=== PATIENT | female | born 1995 | race Caucasian/White ===

== ENCOUNTER 2016-09-29 06:36 | Inpatient (IN) ==
[2016-09-29] MEDS ORDERED: SODIUM CHLORIDE 0.9% 2,000 ML IV STA (06:56)
[2016-09-29] MEDS ORDERED: ONDANSETRON 4 MG/2 ML VIAL IV STA (06:56)
--- NOTE | 2016-09-29 07:08 | Emergency Department Note ---
Merced Forbes Brittany, am scribing for, and in the presence of, José Miguel Blackmon MD 07: 01. Lorri Forbes James D, MD, personally performed the services described in this documentation, ascribed by Namita Blackwood in my presence, and it is both accurate and complete 707 . Arrival - Arrival Chief Complaint: Abdominal / Flank Pain Stated Complaint: stomach pain vomitting ED Nursing Triage Note: PATIENT COMPLAINS OF SEVERE NAUSEA AND VOMTING WITH AN ONSET OF THIS AM. PATIENT IS 12 WEEKS . PATIENT IS . 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 Mode of Arrival: Ambulatory Limitations: No Limitations Source: Patient, RN Notes Reviewed Time Seen by Provider: 09/29/16 06:53 - History of Present Illness HPI Narrative: This is a 21 y/ow white femalew,who presents to the ED with c/o N/V which started 12 weeks ago.She states this has been on and off since she first found out she was . She reports RUQ pain as well. She denies any diarrhea, fever, or dysuria, but notes dark urine. Her mom states pt's LNMP was in May. SHe reports she has tried OTC meds for the nausea but she has vomited them. Pt is . Pt has no other complaints/pain in the ED at this time. Pt denies a PMHx. Pt denies a surgical Hx. Pt denies a family medical Hx. Pt is a current everyday smoker. Onset (ago): week(s) (Started 12 weeks ago) Consistency: intermittent Severity: moderate Date of Last Menstrual Period: 05/02/2017 Allergies/Adverse Reactions: Allergies Allergy/AdvReac Type Severity Reaction Status Date / Time cefotaxime [From Claforan] Allergy RASH Verified 02/15/15 19:50 sulfamethoxazole Allergy RASH Verified 02/15/15 19:49 [From Bactrim] trimethoprim [From Bactrim] Allergy RASH Verified 02/15/15 19:49 Home Medications: Home Medications Medication Instructions Recorded Confirmed Type Pnv95/Ferrous Fumarate/FA 1 tablet PO DAILY 02/21/15 09/29/16 History [ Tablet] Review of System - Review of System 12 point system: reviewed and no additional remarkable complaints except as stated - Review of System Constitutional: Absent: fever Gastrointestinal: Present: abdominal pain, nausea, vomiting. Absent: diarrhea Genitourinary female: Present: other (Dark Urine). Absent: dysuria Medical,Surgical,& Family Hx - Medical History Reproductive: No history of: Ectopic , Complication - Surgical History Reproductive Surgeries: Patient denies;: Section - Social History Smoking Status: Current every day smoker Frequency of Alcohol Use: None Type of Drug Use: None Exam Vital Signs: Vital Signs Temperature 97.6 F 09/29/16 06:47 Pulse Rate 86 09/29/16 07:30 Respiratory Rate 18 09/29/16 07:30 Blood Pressure 90/51 09/29/16 07:30 O2 Sat by Pulse Oximetry 100 09/29/16 07:30 GENERAL: This is a well-nourished well-developed white female in no apparent distress. VITAL SIGNS: Reviewed HEENT: Head is atraumatic and normocephalic. Pupils are equal round react to light. Extraocular movements are intact. Oropharynx is benign with dry mucous membranes. NECK: Neck is soft and supple without tenderness. There are no masses. There is no lymphadenopathy. LUNGS: Lungs are clear to auscultation. Chest rises symmetrically. There is no chest wall tenderness. CV: Heart is regular rate and rhythm without murmurs rubs or gallops. ABDOMEN: Abdomen is soft, tender to palpation the right upper quadrant without rebound or guarding. There are no abdominal abnormal masses palpated. There is no organomegaly. Bowel sounds are present and active. SKIN: Skin is warm and dry. No rash. EXTREMITIES: Patient has full range of motion without tenderness. There is no pedal edema. NEUROLOGIC: Awake alert and oriented 4. Cranial nerves II through XII are grossly intact. Motor is 5 over 5 in all extremities bilaterally. Course - Consultations Consultation #1: Discussed with Dr. Newton. He will see the patient in the emergency department. Patient will be admitted to surgery. Time: 08:24 Results - Labs CBC & BMP: 09/29/16 07:20 09/29/16 07:20 Lab Results: I have reviewed the patients labs - Diagnostic Findings Procedure: Ultrasound: report reviewed by me (Gallbladder ultrasound: Stone in the neck of the gallbladder. Positive Hernández sign. Consistent findings of cholelithiasis and cholecystitis.) Disposition Clinical Impression: Nausea and vomiting, Right upper quadrant abdominal pain, Intrauterine , Cholelithiasis, Acute cholecystitis Case discussed with: patient, patient's family Disposition: Still a Patient Condition: Stable Time of Disposition: 08:18
[2016-09-29] MEDS ORDERED: ONDANSETRON 4 MG/2 ML VIAL ONE (07:29)
[2016-09-29 07:40] LABS: Basophils % 0.2 % (0.0-0.8); Eosinophils # 0.1 10*3/uL (0.0-0.87); Eosinophils % 0.7 % (0.00-10.9); Hematocrit 41.5 VOL% (35.7-47.0); Hemoglobin 14.1 GM/DL (12.0-16.0); Immature Granulocytes % 0.4 %; Immature Granulocytes Absolute 0.05 #; Lymphocytes # 2.8 10*3/uL (1.4-4.0); Lymphocytes % 20.6 % (21.3-54.2); Mean Corpuscular Hemoglobin 30 PG (27-34); Mean Corpuscular Volume 87.2 FL (87-102); Mean Platelet Volume 11.5 FL (9.6-12.0); Monocytes # 0.5 10*3/uL (0.11-0.8); Monocytes % 3.7 % (1.7-12.7); Neutrophils # 10.1 10*3/uL (1.4-7.4); Neutrophils % 74.4 % (38.7-73.9); Platelet Count 262 T/CUMM (130-400); Red Blood Count 4.76 MC/CUMM (3.8-5.5); Red Cell Distribution Width 13.4 % (9.3-17.3); White Blood Count 13.6 T/CUMM (4-12)
[2016-09-29 07:45] LABS: Amorphous Crystals,Urine Few /HPF (Few); Apearance,Urine CLOUDY (Clear); Bilirubin,Urine Negative (Negative); Blood, Urine Negative (Negative); Glucose,Urine (UA) Negative (Negative); Ketones,Urine Negative (Negative); Mucus,Urine Occasional /LPF (Occasional); Nitrite,Urine Negative (Negative); Protein,Urine Negative; RBC,Urine 5 /HPF (0-4); Urine Color Yellow (Yellow); Urine Specific Gravity 1.014 (1.001-1.035); Urine Urobilinogen < 2.0 EU/DL (0.2-1.0)
--- NOTE | 2016-09-29 08:07 | Ultrasound Report ---
Exam: US gallbladder Date:09/29/2016 6:57 AM Indication: Nausea vomiting right upper quadrant abdominal pain Comparison: None Findings: Liver: 16 cm. No focal abnormalities present. The hepatic and portal veins are patent. Gallbladder: Slightly distended gallbladder and anterior deal 2.2 mm. There is a stone stuck in the neck of the gallbladder measuring approximately 12 mm. Positive sonographic Hernández sign present. CBD: 4 mm Pancreas: Visualized portion is unremarkable. Kidneys Right kidney: 10.6 x 4.6 x 4.3 cm. No hydronephrosis or perinephric fluid collection is present. Left kidney: Not evaluated Aorta IVC: No obvious aneurysm clearly demonstrated Spleen: Not evaluated Ascites: None Impression: 1. Cholelithiasis with positive sonographic Hernández sign with stone in the neck of the gallbladder that does not appear to move. Question acute cholecystitis as well Ultrasound images were stored and captured PROCEDURE INTERPRETED AT [facility] DEPARTMENT OF RADIOLOGY Final Report Signed by: Dr. Mario Saldivar
[2016-09-29 08:10] LABS: Alanine Aminotransferase 13 U/L (13-56); Albumin 3.9 G/DL (3.4-5.0); Alkaline Phosphatase 98 U/L (45-117); Aspartate Amino Transferase 8 U/L (0-37); Bilirubin,Total < 0.39 MG/DL (0.2-1.0); Blood Urea Nitrogen 7 MG/DL (7-18); Calcium 10.1 MG/DL (8.5-10.1); Glucose 116 MG/DL (74-106); Osmolality,Calculated 277.4 MOS/KG (273-304); Potassium 3.5 MMOL/L (3.5-5.1); Sodium 140 MMOL/L (136-145); Total Protein 7.8 G/DL (6.4-8.3)
[2016-09-29] MEDS ORDERED: MORPHINE 2 MG/1 ML SYRINGE IV PRN (09:12)
--- NOTE | 2016-09-29 09:32 | General Surg History&Physical ---
Assessment and Plan - Time spent with patient Time spent with patient: Less than 30 minutes (1) Cholelithiasis Status: Acute Assessment and plan: 21-year-old white female with no medical or surgical history, 12 weeks , admitted by Dr. Matos with acute cholecystitis with cholelithiasis. Patient has normal LFTs with mildly elevated lipase. Ultrasound with stone lodged in the neck of the gallbladder. Will admit patient and start on clear liquid diet, consult Dr. Crocker her OB for clearance, nausea and pain control, due to her and allergies will start her on Merrem and watch for cross- reaction. Repeat labs in the a.m. to check lipase levels. Will make her n.p.o. after midnight for possible cholecystectomy in the a.m. by Dr. Newton. Current Visit: Yes History of Present Illness Chief complaint: Abdominal pain, nausea, vomiting History of present illness: 21-year-old white female with no medical or surgical history but in her 12th week of her third came into the ED with 1 day history of abdominal pain, nausea and vomiting. Patient states she has had some off and on nausea and vomiting since her began but the pain started last night and it was excruciating. Patient states it was in the epigastric and right upper quadrant and radiated through to her back and it was associated with nausea and vomiting. Patient states at intermittent times when she ate greasy foods during this she would have some abdominal pain but it was nothing like what started last night. Gallbladder ultrasound is showing cholelithiasis with positive sonographic Hernández sign with a stone in the neck of the gallbladder that does not appear to move, approximately 12 mm, gallbladder is distended. She is afebrile vital signs are stable. She was hypotensive with systolic in the 90s upon admission to the ER and she has since received 2 L of fluid. Her WBCs are mildly elevated at 13.6 with a left shift. Her UA is negative. CMP showing normal liver function test with a mildly elevated lipase of 428. Upon exam, patient states she is feeling better with some nausea medicine. Her abdomen is soft and tender to palpation in the right upper quadrant and epigastric region. She does not appear toxic. Dr. Newton has asked been asked to evaluate. Home Medications Medication Instructions Recorded Confirmed Type Pnv95/Ferrous Fumarate/FA 1 tablet PO DAILY 02/21/15 09/29/16 History [ Tablet] Allergies Allergy/AdvReac Type Severity Reaction Status Date / Time cefotaxime [From Claforan] Allergy RASH Verified 02/15/15 19:50 sulfamethoxazole Allergy RASH Verified 02/15/15 19:49 [From Bactrim] trimethoprim [From Bactrim] Allergy RASH Verified 02/15/15 19:49 Medical,Surgical,& Family Hx - Medical History Reproductive: No history of: Ectopic , Complication - Surgical History Reproductive Surgeries: Patient denies;: Section - Social History Smoking Status: Current every day smoker Frequency of Alcohol Use: None Type of Drug Use: None Exam - Constitutional Vitals: Period Temp Pulse Resp BP Sys/Gonsalez Pulse Ox Last 24 Hr 97.6 F 86-91 18-20 90-110/51-60 99-100 21-year-old white female, no acute distress, alert and oriented Chest clear to auscultation bilaterally CV regular rate and rhythm, no murmurs rubs or gallops Abdomen soft, tender to palpation in the right upper quadrant epigastric region , positive Hernández's Extremities no edema - Constitutional Constitutional: Present: as per HPI Quality Measures - VTE Contraindication to Pharmacological VTE Prophylaxis: High Risk of Bleeding Results - Labs CBC & BMP: 09/29/16 07:20 09/29/16 07:20 Lab Results: I have reviewed the past 24 hour labs - Diagnostic Findings Procedure: Ultrasound: report reviewed by me (Cholelithiasis with immovable stone in the gallbladder neck)
[2016-09-29] MEDS ORDERED: MEROPENEM 1,000 MG VIAL IV ONE (11:05)
[2016-09-29] MEDS ORDERED: PANTOPRAZOLE 40 MG TABLET PO ONE (11:06)
[2016-09-29] MEDS: LACTATED RINGERS 1,000 ML IV SCH ×2 (11:23→17:49)
[2016-09-29] MEDS: MEROPENEM 1,000 MG in SODIUM CHLORIDE 0.9% 100 ML IV SCH ×2 (11:31→17:49)
--- NOTE | 2016-09-29 17:37 | OB/GYN Consult Note ---
History of Present Illness Chief complaint: nausea and vomiting, ultrasound diagnostic of cholecystitis and cholelithia History of present illness: Ms. Huntley is a 21 year old female 3 para 2 admitted with , hyperemesis gravidarum. Ultrasound diagnostic of cholelithiasis. Patient been evaluated by general surgery have opted to proceed with laparoscopic cholecystectomy on September 30. Wrist and benefits were discussed with this patient regarding the possibility of miscarriage at 13 weeks gestation. Patient is willing to accept this risk because of the severe nature of her medical condition. We'll obtain an ultrasound prior to proceeding with her surgery in a.m. Home Medications Medication Instructions Recorded Confirmed Type Pnv95/Ferrous Fumarate/FA 1 tablet PO DAILY 02/21/15 09/29/16 History [ Tablet] Allergies Allergy/AdvReac Type Severity Reaction Status Date / Time cefotaxime [From Claforan] Allergy RASH Verified 02/15/15 19:50 sulfamethoxazole Allergy RASH Verified 02/15/15 19:49 [From Bactrim] trimethoprim [From Bactrim] Allergy RASH Verified 02/15/15 19:49 Medical,Surgical,& Family Hx - Medical History Gastrointestinal: History of: GI Problems (cholelithiasis) Reproductive: No history of: Ectopic , Complication - Surgical History Reproductive Surgeries: Patient denies;: Section - Family History Family History: Reports;: Family Hypertension (mother, grandmother) - Social History Smoking Status: Current every day smoker Frequency of Alcohol Use: None 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
[2016-09-29] MEDS: oxyCODONE/ACETAMINOPHEN 5-325 MG TABLET PO PRN (17:49)
--- NOTE | 2016-09-29 20:21 | Ultrasound Report ---
Referring Physician: Lynne Crocker Exam: US OB <= 14 weeks fetus Date: September 29, 2016 Reason: OB clearance for surgery, gallbladder surgery in a.m., evaluate viability Comparison: None Technique: Transabdominal grayscale ultrasound images were obtained. Ultrasound images were captured and stored. Findings: The uterus measures 13.0 x 7.8 x 6.6 cm. There is a single intrauterine with a heart rate of 145 bpm. Amniotic fluid appears within normal limits. The placenta is not well evaluated due to the early gestational age. Evaluation of anatomy is also limited by the gestational age. CRL: 12 weeks 4 days BPD: 13 weeks 5 days HC: 13 weeks 6 days AC: 13 weeks 6 days FL: 12 weeks 6 days The composite estimated gestational age by ultrasound is 13 weeks 3 days with an HORACE of April 03, 2017. EFW is 75 g or 3 ounces. The HC/AC ratio is 1.19, which is within normal limits. The growth percentile is 57.4% and is based on the LMP. The maternal ovaries are not visualized. Impression: There is a single intrauterine with a heart rate of 145 bpm. Estimated gestational age by ultrasound is 13 weeks 3 days with an HORACE of April 03, 2017. PROCEDURE INTERPRETED AT [facility] DEPARTMENT OF RADIOLOGY Final Report Signed by: Dr. Tien Brennan
[2016-09-30] MEDS: MEROPENEM 1,000 MG in SODIUM CHLORIDE 0.9% 100 ML IV SCH ×3 (01:34→17:33)
[2016-09-30] MEDS: LACTATED RINGERS 1,000 ML IV SCH ×3 (03:25→22:30)
[2016-09-30] MEDS: ONDANSETRON 4 MG/2 ML VIAL IV PRN (07:45)
[2016-09-30 07:58] LABS: Basophils % 0.3 % (0.0-0.8); Eosinophils # 0.1 10*3/uL (0.0-0.87); Eosinophils % 1.5 % (0.00-10.9); Hematocrit 34.6 VOL% (35.7-47.0); Hemoglobin 11.4 GM/DL (12.0-16.0); Immature Granulocytes % 0.3 %; Immature Granulocytes Absolute 0.03 #; Lymphocytes # 3.4 10*3/uL (1.4-4.0); Lymphocytes % 37.1 % (21.3-54.2); Mean Corpuscular HGB Conc 32.9 GM/DL (32-36); Mean Corpuscular Hemoglobin 30 PG (27-34); Mean Corpuscular Volume 91.5 FL (87-102); Mean Platelet Volume 11.3 FL (9.6-12.0); Monocytes # 0.6 10*3/uL (0.11-0.8); Monocytes % 6.1 % (1.7-12.7); Neutrophils % 54.7 % (38.7-73.9); Platelet Count 190 T/CUMM (130-400); Red Blood Count 3.78 MC/CUMM (3.8-5.5); Red Cell Distribution Width 14.3 % (9.3-17.3); White Blood Count 9.1 T/CUMM (4-12)
[2016-09-30 08:20] LABS: Albumin 2.6 G/DL (3.4-5.0); Bilirubin,Total 0.7 MG/DL (0.2-1.0); Calcium 8.2 MG/DL (8.5-10.1); Magnesium 1.8 MG/DL (1.8-2.4); Osmolality,Calculated 280.8 MOS/KG (273-304); Potassium 3.5 MMOL/L (3.5-5.1); Total Protein 5.7 G/DL (6.4-8.3)
[2016-09-30] MEDS: MULTIVITAMIN (PRENATAL) TABLET PO SCH (10:34)
[2016-09-30] MEDS ORDERED: CITRIC ACID/SODIUM CITRATE 30 ML UDCUP PO ONE ×2 (11:09→11:30)
[2016-09-30] MEDS: PANTOPRAZOLE 40 MG TABLET PO SCH (11:12)
--- NOTE | 2016-09-30 12:19 | Event Note ---
Pain slightly improved this still requiring morphine. On exam her abdomen is branding machine tender to palpation in the right upper quadrant. White blood cell count is improved. On lipase lower. She wants to proceed with cholecystectomy. Discussed the risks again with her and she would like to have her gallbladder removed as soon as possible. Plan for cholecystectomy today with intraoperative cholangiogram to ensure no further stone in the common bile duct.
[2016-09-30] MEDS ORDERED: BUPIVACAINE MPF 0.25% /EPI 30 ML VIAL ONE (13:12)
[2016-09-30] MEDS ORDERED: LIDOCAINE 1%/EPI INJ 20 ML VIAL ONE (13:12)
[2016-09-30] MEDS ORDERED: NEOSTIGMINE 10 MG/10 ML VIAL ONE (13:55)
[2016-09-30] MEDS ORDERED: LIDOCAINE 1% 5 ML VIAL ONE (13:55)
[2016-09-30] MEDS ORDERED: GLYCOPYRROLATE 0.4 MG/2 ML VIAL ONE (13:55)
[2016-09-30] MEDS ORDERED: LACTATED RINGERS 1,000 ML IV ONE (15:04)
[2016-09-30] MEDS ORDERED: fentaNYL 100 MCG/2 ML VIAL ONE (15:04)
[2016-09-30] MEDS ORDERED: ePHEDrine 50 MG/ML AMP ONE (15:04)
[2016-09-30] MEDS ORDERED: SEVOFLURANE 1 UNIT/15 MINUTE INH ONE (15:04)
[2016-09-30] MEDS ORDERED: MORPHINE 10 MG/1 ML VIAL ONE (15:11)
[2016-09-30] MEDS ORDERED: ONDANSETRON 4 MG/2 ML VIAL ONE (15:11)
[2016-09-30] MEDS ORDERED: ONDANSETRON 4 MG/2 ML VIAL IV PRN (15:12)
[2016-09-30] MEDS: MORPHINE 10 MG/1 ML VIAL IV PRN ×3 (15:13→15:23)
--- NOTE | 2016-09-30 15:19 | Operative Note ---
Date of procedure: 09/30/16 Pre-op diagnosis: acute cholecystitis, possible choledocholithiasis Post-op diagnosis: same (mild acute cholecystitis, chronic cholecystitis. No evidence of common bile duct stone) Procedure: Procedure performed: Laparoscopic cholecystectomy with intraoperative cholangiogram #2 supervision and interpretation of fluoroscopy Procedure in detail: After informed consent was obtained, patient was taken operating suite and laid supine on the operating table. After general anesthesia was induced the abdomen was prepped and draped in usual sterile fashion. After procedural pause local anesthetic and straighten the skin and subcutaneous tissue above the umbilicus. Incision was made and dissection carried down through skin and soft tissue. Fascia identified and grasped with Sharonda's and elevated. Fascial incision was made. Abdominal cavity was entered bluntly. Finger sweep revealed no adhesions. Golden trocar placed under direct visualization. Pneumoperitoneum achieved. The camera inserted. Bowel mesentery inspected found be free of any violation. Gravid uterus identified. Patient was then placed in reverse Trendelenburg position rotated to the left. 25 mm trochars were placed in the right upper quadrant 11 mm subxiphoid trocar was placed all under visualization. Gallbladder identified. It was mildly edematous. The gallbladder wall appeared thick and white consistent with chronic cholecystitis. Gallbladder was retracted superiorly. Infundibulum and the gallbladder retracted toward the right hip. Dissection carried out from a lateral to medial approach and triangle of Edwards. Cystic duct and cystic artery were identified and isolated. Using critical view technique these were the only 2 structures entering the gallbladder. Clip was placed the junction of the cystic duct and neck of the gallbladder and partial transection made on the cystic duct. Going to catheter inserted and secured in place. Performed. The tip appeared to be near the common bile duct. Common bile duct intra-and extrahepatic ducts filled with no filling defects identified. Small amount contrast seen entering the pancreatic duct. Contrast was seen entering small bowel. The cholangiocatheter was removed and 2 clips were placed on the cystic duct just distal to the partial transection and the transection completed. Cystic artery was triple clipped and transected high along the gallbladder wall. Gallbladder was removed from the gallbladder fossa using hook cautery and placed in an Endo Catch sac. It was removed through the Golden trocar site. Pneumoperitoneum reachieved. The clips inspected and found be intact no leakage of bilious or sanguinous fluid. There was excellent hemostasis. Irrigant remained clear was all suctioned. Trochars were removed as the abdomen was desufflated. Fascia at the Golden trocar site closed using 0 Vicryl [id number] interrupted suture. Wounds irrigated and suction. Incision closed with mercy. Sterile dressings applied. Patient was explained taken recovery room in stable condition. All lap and needle counts were correct at the end of the case. Anesthesia: PHILA Surgeon / Physician: Ady Newton Estimated blood loss: other (less than 10 mL) Specimens: other (gallbladder) Condition: stable Disposition: PACU Results - Labs CBC & BMP: 09/30/16 07:38 09/30/16 07:38 Discharge Plan - Discharge Medications No Action Pnv95/Ferrous Fumarate/FA [ Tablet] 1 tablet PO DAILY - Follow Up or Referral - Forms/Instructions
[2016-09-30] MEDS: SIMETHICONE CHEW 80 MG TABLET PO PRN ×2 (16:00→22:30)
--- NOTE | 2016-09-30 16:07 | Fluoroscopy Report ---
Exam: FL cholangiogram in surgery Date: 09/30/2016 12:00 AM Comparison: Gallbladder ultrasound, 09/29/2016 Indication: Right upper quadrant pain Technique:[Fluoroscopy time of 11.1 seconds documented. 5 images were obtained. Findings: Injection of nonionic contrast material into the nondilated bile ducts by Dr. Newton. No obstructing calculus identified with contrast of the duodenum. Minimal filling of the main pancreatic duct. Impression: Negative operative cholangiogram. PROCEDURE INTERPRETED AT [facility] DEPARTMENT OF RADIOLOGY Final Report Signed by: Dr. Lashell Waterman
[2016-09-30] MEDS: oxyCODONE/ACETAMINOPHEN 5-325 MG TABLET PO PRN ×2 (16:39→22:30)
[2016-09-30] MEDS: MAGNESIUM HYDROXIDE SUSP 30 ML UDCUP PO PRN (20:27)
[2016-10-01] MEDS: ONDANSETRON 4 MG/2 ML VIAL IV PRN ×2 (01:05→13:42)
[2016-10-01] MEDS: ACETAMINOPHEN 325 MG TABLET PO PRN ×2 (01:09→12:37)
[2016-10-01] MEDS: MEROPENEM 1,000 MG in SODIUM CHLORIDE 0.9% 100 ML IV SCH ×2 (02:17→10:32)
[2016-10-01] MEDS: LACTATED RINGERS 1,000 ML IV SCH ×2 (06:49→15:27)
--- NOTE | 2016-10-01 07:23 | Anesthesia ---
Anesthesia Post OP - Post Ansesthetic Evaluation Patient seen in post op: Yes Resp: within normal limits CV: within normal limits Mental: within normal limits Temp: within normal limits Wsoe-Vu-Wjgfveuty: within normal limits Nausea and Vomiting: within normal limits Pain: within normal limits
[2016-10-01] MEDS: MULTIVITAMIN (PRENATAL) TABLET PO SCH (08:37)
[2016-10-01] MEDS: PANTOPRAZOLE 40 MG TABLET PO SCH (08:37)
[2016-10-01] MEDS: oxyCODONE/ACETAMINOPHEN 5-325 MG TABLET PO PRN (08:37)
[2016-10-01] MEDS: MAGNESIUM HYDROXIDE SUSP 30 ML UDCUP PO PRN (08:37)
[2016-10-01] MEDS: SIMETHICONE CHEW 80 MG TABLET PO PRN (08:38)
--- NOTE | 2016-10-01 11:21 | Event Note ---
Febrile vital signs stable. Patient is tolerating clear liquids without any nausea or vomiting. She says she feels very bloated. She is passing minimal flatus but no bowel movement. Previous pain is much improved and she is only having tenderness around the incisions. She also complains of "gas pain" on exam her abdomen is soft, appropriately tender with no peritoneal signs, and moderately distended. She has some bowel sounds present. We'll continue diet for now. We'll check abdominal x-ray to see if we are dealing with an ileus. Overall she looks good and I anticipate she'll be ready for discharge soon.
--- NOTE | 2016-10-01 11:27 | Pathology Report from [facility] ---
ACCESSION # : [id number] PATIENT NAME : Umu Huntley ORDERING DR : Ady Newton MD CLINICAL HX: Cholelithiasis POST-OP DX: Same SPECIMEN INFO: Gallbladder GROSS DESCRIPTION: The specimen is received in formalin labeled with the patient 's name and consists of an intact pear-shaped gallbladder that measures 8.5 x 3.2 cm. The serosa is shiny, glistening pink-odonnell. The wall averages 0.2 cm in thickness. The mucosa is velvety, yellow-odonnell. The lumen contains viscous brown -yellow bile. There is a single green-brown stone present measuring 1.5 cm. Laundry Manager sections submitted in one cassette. DIAGNOSIS FOR UMU HUNTLEY: GALLBLADDER: Chronic cholecystitis. Cholelithiasis. No evidence of malignancy. SERVICE DATE: 09/30/2016 REPORT DATE: 10/01/2016 PATHOLOGIST: Aris Tian III, M.D. MTDD
--- NOTE | 2016-10-01 13:21 | XRay Report ---
Exam: XR abdomen 1V Date: 10/01/2016 11:21 AM Comparison: None Indication: Abdominal distention Technique:[Erect abdomen with abdomen and pelvis shielded] Findings: Only the upper abdomen is evaluated on the film. Pneumoperitoneum with cholecystectomy yesterday. Mild gaseous distention of the visualized bowel. Possible minimal levoscoliosis of the lower thoracic spine. Impression: Recent cholecystectomy with associated small pneumoperitoneum. Mild gaseous distention of the visualized bowel which can be seen with postoperative ileus. Limited evaluation of the abdomen and pelvis which was shielded in this patient. PROCEDURE INTERPRETED AT [facility] DEPARTMENT OF RADIOLOGY Final Report Signed by: Dr. Lashell Waterman
--- NOTE | 2016-10-01 14:51 | OB/GYN Progress Note ---
Assessment and Plan (1) Acute cholecystitis Status: Acute Current Visit: Yes [employer] - PN: Subj Interval history: Stable with no complaints. FHT's 150s Exam [employer] - Constitutional Vitals: Vital Signs Temp Pulse Pulse Resp BP Pulse Ox Pulse Ox 10/01/16 12:00 97.9 F 63 20 88/61 97 10/01/16 07:28 98.4 F 61 16 84/41 97 10/01/16 04:00 97.9 F 73 20 105/56 98 09/30/16 23:20 98.4 F 61 20 88/49 100 09/30/16 19:25 97.6 F 80 20 100/51 99 09/30/16 18:28 86 20 113/59 09/30/16 17:40 71 20 110/52 100 09/30/16 15:50 97.5 F L 72 20 107/73 100 09/30/16 15:45 97.5 F L 72 20 107/73 100 09/30/16 15:40 97.5 F L 77 19 106/62 100 09/30/16 15:35 81 16 117/62 100 09/30/16 15:25 70 20 115/66 100 09/30/16 15:20 80 12 123/67 100 09/30/16 15:15 89 20 127/72 100 09/30/16 15:10 97.0 F L 80 20 125/67 100 General appearance: no acute distress - Gyencological / Post Surgical Post Surgical Exam Lungs: bilateral: normal Chest: Normal S1, Normal S2 Extremities [employer]: Present: normal Abdomen obstetrics progress note: Present: normal appearance, aortic enlargement - Head Head exam: Present: normal inspection - Respiratory Respiratory exam: Present: clear to auscultation bilaterally - Cardiovascular Cardiovascular exam: Present: regular rate and rhythm - GI/Abdominal GI/Abdominal exam: Present: normal bowel sounds - Extremities Exam Extremities exam: Present: normal inspection - Neurological Exam Neurological exam: Present: alert, oriented X3 - Psychiatric Psychiatric exam: Present: normal affect, normal mood - Skin Skin exam: Present: normal color, warm Results - Labs CBC & BMP: 09/30/16 07:38 09/30/16 07:38
[2016-10-02] MEDS: MULTIVITAMIN (PRENATAL) TABLET PO SCH (08:52)
[2016-10-02] MEDS: PANTOPRAZOLE 40 MG TABLET PO SCH (08:52)
[2016-10-02] MEDS: oxyCODONE/ACETAMINOPHEN 5-325 MG TABLET PO PRN (09:52)
[2016-10-02] MEDS: ONDANSETRON 4 MG/2 ML VIAL IV PRN (09:59)
--- NOTE | 2016-10-02 10:04 | Ultrasound Report ---
Referring Physician: Lynne Crocker Exam: US OB <= 14 weeks fetus Date: October 02, 2016 Reason: Verify heart tones, post gallbladder surgery Comparison: OB ultrasound September 29, 2016 Technique: Transabdominal grayscale ultrasound images were obtained. Ultrasound images were captured and stored. Findings: The uterus measures 12.2 x 8.8 x 7.1 cm. There is a single intrauterine with a heart rate of 148 bpm. Amniotic fluid is within normal limits. The placenta is located anteriorly and is unremarkable as visualized. [place]-rump length measures 6.89 cm, which is consistent with a gestational age of 13 weeks 1 day and an HORACE of April 08, 2017. Previously calculated HORACE was April 03, 2017. Differences in HORACE may be related to differences in measuring technique. The right maternal ovary measures 2.8 x 1.6 x 1.5 cm, and the left maternal ovary measures 2.6 x 2.1 x 1.2 cm. Color flow seen at both ovaries. No free fluid is identified within the pelvis. Impression: There is a single intrauterine with a heart rate of 148 bpm. Estimated gestational age is 13 weeks 1 day with an HORACE of April 08, 2017. Previously calculated HORACE was April 03, 2017. Differences in calculated HORACE may be related to differences in measuring technique. PROCEDURE INTERPRETED AT [facility] DEPARTMENT OF RADIOLOGY Final Report Signed by: Dr. Tien Brennan
--- NOTE | 2016-10-02 10:19 | Discharge Summary ---
Hospital Course - Hospital Course Hospital Course: Patient is status post laparoscopic cholecystectomy. She is doing well. She had a mild ileus and gas pain that appears to have resolved. Her abdomen is soft and appropriately tender and nondistended and she wants to go home. She is tolerating a diet. She had a bowel movement. Incisions look good. Discharge instructions were given. I'll see her in 2 weeks. Discharge Plan - Discharge Medications New oxyCODONE/ACETAMINOPHEN 5-325 [Percocet 5-325] 1 tablet PO Q6H PRN #40 tablet PRN Reason: Pain Moderate (4-7) Continue Pnv95/Ferrous Fumarate/FA [ Tablet] 1 tablet PO DAILY - Follow Up or Referral - Forms/Instructions Exam - Constitutional Vitals: Period Temp Pulse Resp BP Sys/Gonsalez Pulse Ox Last 24 Hr 97.5 F-98.6 F 63-77 18-20 88-110/41-61 97-99 DS: Provider Date of admission: 09/29/16 09:12 Primary care physician: Lynne Crocker MD Attending physician on admission: Ady Newton MD Consults: 09/29/16 09:34 Consult to Pharmacy [CONS] Routine Reason for Pharmacy Consult: Adjust Meds Renal Funct Discharging clinician: Ady Newton MD
[2016-10-02 14:38] VITALS: BP 103/59
== END 2016-10-02 14:10 | disposition home or self-care (01) | DRG 951 ==
LOC: N.ED 06:36 → N.EDINP 09:12 → N.OB 13:02
PROVIDERS: ADMIT Surgery; ATTEND Surgery
PROC: LAPCHOL (2016-09-30 13:55)

== ENCOUNTER 2017-03-23 11:44 | Inpatient (IN) ==
[2017-03-23] MEDS ORDERED: LACTATED RINGERS 1,000 ML IV PRN (12:20)
[2017-03-23] MEDS ORDERED: ONDANSETRON 4 MG/2 ML VIAL IV PRN (12:20)
[2017-03-23] MEDS ORDERED: ePHEDrine 50 MG/ML AMP IV PRN (12:22)
[2017-03-23] MEDS ORDERED: diphenhydrAMINE 50 MG/1 ML VIAL IV PRN (12:22)
[2017-03-23] MEDS ORDERED: fentaNYL 2 MCG/ROPIV 0.2% EPID 150 ML EPIDURAL SCH (12:22)
[2017-03-23] MEDS ORDERED: FAMOTIDINE 20 MG/2 ML VIAL IV ONE (12:22)
[2017-03-23] MEDS ORDERED: CITRIC ACID/SODIUM CITRATE 30 ML UDCUP PO ONE (12:22)
[2017-03-23] MEDS ORDERED: PROMETHAZINE 25 MG/1 ML VIAL IM ONE (12:22)
[2017-03-23] MEDS ORDERED: AMPICILLIN INJ 2,000 MG in SODIUM CHLORIDE 0.9% 100 ML IV ONE (12:23)
[2017-03-23] MEDS ORDERED: OXYTOCIN/LR 20 UNIT/1,000 ML BAG IV SCH (12:30)
[2017-03-23] MEDS ORDERED: LACTATED RINGERS 1,000 ML IV SCH (12:30)
[2017-03-23 12:44] LABS: Basophils % 0.2 % (0.0-0.8); Eosinophils # 0.1 10*3/uL (0.0-0.87); Eosinophils % 0.5 % (0.00-10.9); Hematocrit 39.2 VOL% (35.7-47.0); Hemoglobin 13.6 GM/DL (12.0-16.0); Immature Granulocytes % 0.5 %; Immature Granulocytes Absolute 0.06 #; Lymphocytes # 2.8 10*3/uL (1.4-4.0); Lymphocytes % 22.3 % (21.3-54.2); Mean Corpuscular HGB Conc 34.7 GM/DL (32-36); Mean Corpuscular Hemoglobin 30 PG (27-34); Mean Corpuscular Volume 87.7 FL (87-102); Mean Platelet Volume 11.7 FL (9.6-12.0); Monocytes # 0.7 10*3/uL (0.11-0.8); Monocytes % 5.7 % (1.7-12.7); Neutrophils # 8.9 10*3/uL (1.4-7.4); Neutrophils % 70.8 % (38.7-73.9); Platelet Count 212 T/CUMM (130-400); Red Blood Count 4.47 MC/CUMM (3.8-5.5); Red Cell Distribution Width 13.2 % (9.3-17.3); White Blood Count 12.5 T/CUMM (4-12)
[2017-03-23 13:21] LABS: Alanine Aminotransferase 26 U/L (13-56); Albumin 2.8 G/DL (3.4-5.0); Alkaline Phosphatase 142 U/L (45-117); Aspartate Amino Transferase 16 U/L (0-37); Bilirubin,Total < 0.39 MG/DL (0.2-1.0); Blood Urea Nitrogen 5 MG/DL (7-18); Calcium 8.8 MG/DL (8.5-10.1); Glucose 74 MG/DL (74-106); Potassium 3.7 MMOL/L (3.5-5.1); Sodium 136 MMOL/L (136-145); Uric Acid 2.3 MG/DL (2.6-6.0)
--- NOTE | 2017-03-23 18:15 | OB/GYN History & Physical ---
History of Present Illness Chief complaint: In for active labor. History of present illness: Ms. Huntley is a 21 year old female who is a 3 para 2 living 2 HORACE 2016 for estimated gestational age of 30 weeks. The patient presented to the clinic for a routine exam. She was examined by Dr. Crocker and was noted to be 7 cm dilated 80% effaced with vertex presenting at a -1 station. In light of these findings the patient was sent to labor department for management of active labor. The risk and benefits were thoroughly discussed with this patient and significant other, plan of care was discussed with Dr. Crocker and all parties were agreeable plan of care the patient received her care through the [facility] and she received routine care she did experience labor. Her labor was managed with p.o. tocolytics. Otherwise she had an uneventful course of labor. She has had 2 previous vaginal deliveries and she reported no complications with either . labs: She is rubella immune, RPR is nonreactive, hepatitis B negative, HIV negative, GBS culture negative. Review of systems is negative with exception of above. Home Medications Medication Instructions Recorded Confirmed Type Pnv No.95/Ferrous Fum/Folic AC 1 tablet PO DAILY MDD one tab 02/21/15 03/23/17 History [ Tablet] Allergies Allergy/AdvReac Type Severity Reaction Status Date / Time cefotaxime [From Claforan] Allergy RASH Verified 02/15/15 19:50 sulfamethoxazole Allergy RASH Verified 02/15/15 19:49 [From Bactrim] trimethoprim [From Bactrim] Allergy RASH Verified 02/15/15 19:49 12 point system: reviewed and no additional remarkable complaints except as stated Medical,Surgical,& Family Hx - Medical History Neurology: No history of: Seizures Gastrointestinal: History of: GI Problems (cholelithiasis) Reproductive: No history of: Ectopic , Complication - Surgical History Cardiac Surgeries: Patient Denies: Cardiac Catheterization Neurologic Surgeries: Patient denies: Neurologic Surgery HEENT Surgeries: Patient denies: Tonsilectomy & Adenoidectomy Abdominal Surgeries: Surgical HX of: Cholecystectomy Reproductive Surgeries: Patient denies;: Section - Family History Family History: Reports;: Family Hypertension (mother, grandmother), Family Psychiatric Problems (BIPOLAR-MOM, BROTHER, SISTER, GRANDMOTHER) Denies;: Family Anesthesia Reaction, Family Cancer, Family Diabetes, Family Heart Disease, Family Hematology, Family Stroke - Social History Smoking Status: Former smoker Have you smoked in the last 12 months: Yes Frequency of Alcohol Use: None Type of Drug Use: None Marital Status: Single Lives 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:: 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 - Constitutional Vitals: Vital Signs Temp Pulse Resp BP 03/23/17 17:55 97.3 F L 80 20 106/67 03/23/17 12:19 97.9 F 85 20 116/73 - Respiratory Respiratory exam: Present: clear to auscultation bilaterally - Cardiovascular Cardiovascular exam: Present: regular rate and rhythm - Extremities Exam Extremities exam: Present: normal inspection - Neurological Exam Neurological exam: Present: alert, oriented X3 - Psychiatric Psychiatric exam: Present: normal affect, normal mood - Skin Skin exam: Present: normal color, warm Assessment and Plan (1) Active labor Status: Acute Assessment and plan: Admit IV fluids IV Pitocin per protocol Artificial rupture membranes Epidural anesthesia Anticipate Current Visit: Yes Results - Labs CBC & BMP: 03/23/17 12:40 03/23/17 12:40 Quality Measures - VTE Contraindication to Pharmacological VTE Prophylaxis: Clinical assessment deems Pt at low risk, no prophalaxis needed
[2017-03-23] MEDS ORDERED: ACETAMINOPHEN/CODEINE 300-30 MG TABLET PO PRN (18:21)
--- NOTE | 2017-03-23 18:24 | Event Note ---
HPI: This is Helena Silva CNM dictating a delivery note for Dr. Jl Crocker on Suzi Huntley. Ms. Huntley is a 21-year-old 3 para 2 who presented to the labor department in active labor. The risk and benefits were thoroughly discussed with this patient and significant other, plan of care was discussed with Dr. Crocker and all parties were in agreement with plan. Stage I: The patient was admitted and received IV fluids. Artificial rupture membranes was performed clear fluid noted. The patient was started on IV Pitocin per protocol. She received an epidural for pain control. She progressed in labor with a CAT 1 tracing. The patient had an uneventful course of labor. Stage II: The patient was complete and complained of pressure and strong desire to push. The patient pushed for approximately 5 minutes after which time the infant's head was delivered. The mouth and nose were suctioned on the perineum , the remainder the infant was delivered at 1442 a viable female was noted. Apgars were 9 at 1 minute and 9 at 5 minutes. weight was 6 pounds and 7 ounces. A cord pH was obtained and sent to the lab. The was placed on the mom's abdomen for skin to skin bonding. Stage III: A spontaneous delivery of a Sullivan placenta with a three-vessel cord noted. The placenta was further examined appeared to be grossly intact. The vagina cervix inspected with no tears or lacerations noted. Estimated blood loss was approximately 100 cc. At the time of dictation mother and baby are both in stable condition.
[2017-03-23] MEDS ORDERED: WITCH HAZEL PADS 100/JAR TOP PRN (18:31)
[2017-03-23] MEDS ORDERED: LANOLIN 50% CREAM 0.3 OZ TUBE TOP PRN (18:31)
[2017-03-23] MEDS ORDERED: BENZOCAINE 20%/MENTHOL 0.5% SPRAY 56 GM CAN TOP PRN (18:31)
[2017-03-23] MEDS ORDERED: ACETAMINOPHEN 325 MG TABLET PO PRN (18:31)
[2017-03-23] MEDS ORDERED: HYDROCORTISONE 2.5% RECTAL CREAM 30 GM TUBE TOP PRN (18:31)
[2017-03-23] MEDS ORDERED: oxyCODONE/ACETAMINOPHEN 5-325 MG TABLET PO PRN ×2 (18:31)
[2017-03-23] MEDS ORDERED: DIPH/TET/ACEL PERT BOOSTER VACCINE 0.5 ML VIAL IM ONE (18:31)
[2017-03-23] MEDS ORDERED: BISACODYL 10 MG SUPP RECTAL PRN (18:31)
[2017-03-23] MEDS ORDERED: RHO(D) IMMUNE GLOBULIN 300 MCG SYRINGE IM ONE (18:31)
[2017-03-23] MEDS ORDERED: MEASLES/MUMPS/RUBELLA VACCINE 0.5 ML VIAL SUBCUT ONE (18:31)
[2017-03-23] MEDS ORDERED: OXYTOCIN/LR 20 UNIT/1,000 ML BAG IV ONE (18:47)
--- NOTE | 2017-03-23 20:13 | Anesthesia Post-Op ---
Anesthesia Post OP - Post Ansesthetic Evaluation Patient seen in post op: Yes Resp: within normal limits CV: within normal limits Mental: within normal limits Temp: within normal limits [id number]-Ll-Ledphfyco: within normal limits Nausea and Vomiting: within normal limits Pain: within normal limits
[2017-03-23] MEDS: DOCUSATE SODIUM 100 MG CAPSULE PO SCH (21:14)
[2017-03-23] MEDS: IBUPROFEN 800 MG TABLET PO PRN (23:15)
[2017-03-24 06:48] LABS: Basophils # 0.1 10*3/uL (0.0-0.2); Basophils % 0.4 % (0.0-0.8); Eosinophils # 0.2 10*3/uL (0.0-0.87); Eosinophils % 1.5 % (0.00-10.9); Hematocrit 35.8 VOL% (35.7-47.0); Hemoglobin 12.4 GM/DL (12.0-16.0); Immature Granulocytes % 0.3 %; Immature Granulocytes Absolute 0.03 #; Lymphocytes # 2.8 10*3/uL (1.4-4.0); Lymphocytes % 24.9 % (21.3-54.2); Mean Corpuscular HGB Conc 34.6 GM/DL (32-36); Mean Corpuscular Hemoglobin 31 PG (27-34); Mean Corpuscular Volume 88.8 FL (87-102); Monocytes # 0.9 10*3/uL (0.11-0.8); Monocytes % 8.1 % (1.7-12.7); Neutrophils # 7.3 10*3/uL (1.4-7.4); Neutrophils % 64.8 % (38.7-73.9); Platelet Count 161 T/CUMM (130-400); Red Blood Count 4.03 MC/CUMM (3.8-5.5); Red Cell Distribution Width 13.2 % (9.3-17.3); White Blood Count 11.2 T/CUMM (4-12)
[2017-03-24] MEDS: DOCUSATE SODIUM 100 MG CAPSULE PO SCH ×2 (09:22→21:33)
--- NOTE | 2017-03-24 10:00 | Progress Note ---
Family Medicine PN Sub Interval history: day #1 Status post Ambulating well, voiding well, and passing gas Denies any type of excessive vaginal bleeding, or severe uterine discomfort. Extremities well with no limits Assessment and plan Continue with present therapy possible discharge in a.m. Exam (Progress Note) - Constitutional Vitals: Period Temp Pulse Resp BP Sys/Gonsalez Pulse Ox Last 24 Hr 97.3 F-98.2 F 53-85 17-20 87-116/52-73 97-98 Results - Labs CBC & BMP: 03/24/17 05:57 03/23/17 12:40 Quality Measures - VTE Contraindication to Pharmacological VTE Prophylaxis: Clinical assessment deems Pt at low risk, no prophalaxis needed
[2017-03-24] MEDS: IBUPROFEN 800 MG TABLET PO PRN ×2 (11:16→21:32)
[2017-03-25 07:41] VITALS: BP 103/59
--- NOTE | 2017-03-25 08:58 | Discharge Summary ---
Hospital Course - Hospital Course Hospital Course: Ms. Huntley presented to the labor department in active labor. She subsequently delivered a viable infant with no complications. She is followed a normal course and she has done well. Her bleeding is minimal with no odor. Her perineum is intact with no edema. Her vital signs and lab values are stable. She is bonding well with her . Contraception options has been discussed with this patient, she desires the Nexplanon nadir and will have inserted at her visit. She will be discharged home with prescriptions for pain and a follow-up appointment in our office. Diagnosis - Discharge Diagnosis (1) Active labor Status: Acute Specialty Discharge - Follow Up or Referrals Follow up with: Lynne Crocker MD [Primary Care Provider] - (Follow-up in 6 weeks.) Discharge Plan - Discharge Data Disposition: Disch To Home/Self Care Condition at Discharge: Stable Discharge Diet: advance to your usual diet, regular diet Activity: resume usual activities as tolerated Hygiene: no restrictions Weight Bearing at Discharge: weight bear as tolerated Driving: no restrictions Contact your physician if you experience:: fever over 101, pain uncontrolled by pain medications - Discharge Medications New Acetamin/Codeine 300-30 Tab [Tylenol/Codeine #3] 2 tablet PO Q4H PRN #30 tablet PRN Reason: Pain Mild (1-3) Ibuprofen Tab [Motrin Tab] 800 mg PO Q6H PRN #30 tablet PRN Reason: Pain Moderate (4-7) No Action Pnv No.95/Ferrous Fum/Folic AC [ Tablet] 1 tablet PO DAILY MDD one tab - Follow Up or Referral Follow Up: Lynne Crocker MD [Primary Care Provider] - - Forms/Instructions Instructions: Depression (GEN), Perineal Care (DC), Vaginal Delivery (DC), Bleeding (DC) Exam - Constitutional Vitals: Period Temp Pulse Resp BP Sys/Gonsalez Pulse Ox Last 24 Hr 97.2 F-98.3 F 64-99 18-20 90-121/49-74 96-99 General appearance: normal weight, no acute distress - Head Head exam: Present: normal inspection - Respiratory Respiratory exam: Present: clear to auscultation bilaterally - Cardiovascular Cardiovascular exam: Present: regular rate and rhythm - GI/Abdominal GI/Abdominal exam: Present: normal bowel sounds, soft - Extremities Exam Extremities exam: Present: normal inspection - Neurological Exam Neurological exam: Present: alert, oriented X3 - Psychiatric Psychiatric exam: Present: normal affect, normal mood - Skin Skin exam: Present: normal color, warm DS: Provider Date of admission: 03/23/17 12:20 Primary care physician: Lynne Crocker MD Attending physician on admission: Lynne Crocker MD Consults: 03/23/17 12:20 Consult to Anesthesiology [CONS] Routine Consulting Provider: Reason for Anesthesiology: Epidural Consult Comment: Epidural for pain managment 03/23/17 18:31 Consult to Shuttle Repairer [CONS] Routine Consult Shuttle Repairer: Breast Feeding Discharging clinician: Helena Silva CNM Expected date of discharge: 03/25/17
[2017-03-25] MEDS: DOCUSATE SODIUM 100 MG CAPSULE PO SCH (09:25)
[2017-03-25] MEDS: IBUPROFEN 800 MG TABLET PO PRN (09:29)
== END 2017-03-25 14:00 | disposition home or self-care (01) | DRG 560 ==
LOC: N.LDOUT 11:44 → N.LD 11:49 → N.OB 17:51
PROVIDERS: ADMIT Obstetrics & Gynecology; ATTEND Obstetrics & Gynecology